=== PATIENT | male | born 1990 | race Asian ===

== ENCOUNTER 2017-01-27 18:24 | Emergency (ER) | payer MEDICAID ==
[~2017-01-27] VITALS: Ht 167.6 cm; Wt 65.8 kg
[2017-01-27 18:40] VITALS: BP 120/80
[2017-01-27 18:47] VITALS: BP 130/82
--- NOTE | 2017-01-29 07:51 | Emergency Room Report ---
History of Present Illness General Chief Complaint: General Complaint Source: Patient Present Illness HPI 26-year-old male presents to ED for evaluation. Per EMS patient was picked out outside because he was acting in a bizarre fashion. Bystanders called 911. Patient was brought here. Upon arrival patient appears agitated but is not screaming or yelling. Patient states he is often misunderstood. Does not know why he was brought here. States he was not causing any problems. Admits to a psychiatric history and states he is compliant with his medications. Denies hearing voices. Denies suicidal or homicidal ideation. Denies drug use. No other aggravating or relieving factors. Denies any other associated symptoms Allergies: Coded Allergies: No Known Allergies (Unverified , 01/27/17) Patient History Past Medical History: psych hx Past Surgical History: none Pertinent Family History: none Social History: Denies: alcohol use, drug use, smoking Immunizations: UTD Reviewed Nursing Documentation: PMH: Agreed, PSxH: Agreed Nursing Documentation-PMH Past Medical History: No Stated History History Of Psychiatric Problem: Yes Review of Systems All Other Systems: negative except mentioned in HPI Physical Exam Vital Signs Date Time Temp Pulse Resp B/P Pulse Ox O2 Delivery O2 Flow Rate FiO2 01/27/17 18:30 98.1 90 16 120/80 98 Room Air Sp02 EP Interpretation: reviewed, normal General Appearance: no apparent distress, alert, GCS 15, non-toxic Head: normocephalic, atraumatic Eyes: bilateral eye PERRL, bilateral eye normal inspection ENT: hearing grossly normal, normal pharynx, no angioedema, normal voice Neck: full range of motion, supple/symm/no masses Respiratory: chest non-tender, lungs clear, normal breath sounds, speaking full sentences Cardiovascular #1: regular rate, rhythm, no edema Cardiovascular #2: 2+ carotid (R), 2+ carotid (L), 2+ radial (R), 2+ radial (L) , 2+ dorsalis pedis (R), 2+ dorsalis pedis (L) Gastrointestinal: normal bowel sounds, non tender, soft, non-distended, no guarding, no rebound Rectal: deferred Genitourinary: normal inspection, no CVA tenderness Musculoskeletal: back normal, gait/station normal, normal range of motion, non- tender Neurologic: alert, oriented x3, responsive, motor strength/tone normal, sensory intact, speech normal Psychiatric: judgement/insight normal, memory normal, no suicidal/homicidal ideation, no delusions, anxious Reflexes: 3+ bicep (R), 3+ bicep (L), 3+ tricep (R), 3+ tricep (L), 3+ knee (R) , 3+ knee (L) Skin: normal color, no rash, warm/dry, well hydrated Lymphatic: no adenopathy Medical Decision Making Diagnostic Impression: Primary Impression: Behavior problem Additional Impression: Encounter for medical screening examination ER Course Hospital Course 26-year-old male presents to ED for behavioral problem. Found on the street agitated Differential-psychosis, drug abuse, alcohol abuse Clinical course Patient placed on stretcher. Given that patient is able to provide an adequate history, I see no need to check blood work or place an IV. Patient appears oriented and is answering questions appropriately. Maintaining good eye contact. Remainder physical exam unremarkable. Patient is declining blood work and Richardson catheter. Patient states he is often brought to hospitals for the same reason. Patient is showing no signs of suicidal or homicidal ideation. At this time I see no reason to keep patient against his will. Patient states he is homeless but is staying with a friend deanna. He knows the friend address and will go there now Diagnosis -behavioral problem, encounter for medical screening exam stable and discharged to home. Followup with PMD. Return to ED if symptoms recur or worsen Last Vital Signs Date Time Temp Pulse Resp B/P Pulse Ox O2 Delivery O2 Flow Rate FiO2 01/27/17 18:47 98.1 85 16 130/82 98 Room Air Status: improved Disposition: HOME, SELF-CARE Condition: Stable Referrals: [facility],REFERRING (PCP) Patient Instructions: Medical Screening Exam Additional Instructions: Take previously prescribed medications as directed. Follow up with PCP in 3-5 days Return sooner to ED if new symptoms occur, or current symptoms become worse. - Please note that this Emergency Department Report was dictated using [employer] software, occasionally this can lead to erroneous entry secondary to interpretation by the dictation equipment. CUAUHTEMOC CORBIN M.D. January 29, 2017 07:51
== END 2017-01-27 19:25 | disposition home or self-care (01) ==
LOC: EDBD 18:24 → EMR 18:57
DX: F91.9 Conduct disorder, unspecified (principal)
CPT/HCPCS: 99283